=== PATIENT | female | born 1965 | race Caucasian/White ===

== ENCOUNTER 2017-03-19 15:36 | Emergency (ER) | payer BC, OTHER ==
[~2017-03-19] VITALS: Ht 165.1 cm; Wt 60.6 kg
[~2017-03-19 15:36] MED LIST: VENL150C PO
[2017-03-19 16:17] LABS: HEMATOCRIT 48.8 % (34.6-47.8); HEMOGLOBIN 16.6 g/dL (11.7-16.4)
[2017-03-19 16:17] LABS: DAU SCREEN DISCLAIMER
[2017-03-19] MEDS ORDERED: LORazepam 1MG TABLET PO ONE (16:30)
[2017-03-19 16:31] LABS: BLOOD UREA NITROGEN 5 mg/dL (7-18)
[2017-03-19 16:33] LABS: ACETAMINOPHEN < 2 mcg/mL (10-30)
[2017-03-19] MEDS ORDERED: LORazepam 1MG TABLET ONE (17:48)
[2017-03-19] MEDS ORDERED: ZIPRASIDONE 20MG CAPSULE ONE (18:39)
[2017-03-19] MEDS ORDERED: ZIPRASIDONE 20MG CAPSULE PO ONE (19:00)
[2017-03-20 02:58] VITALS: BP 140/92
== END 2017-03-20 03:26 | disposition home or self-care (01) ==
LOC: ED 19:09
DX: F10.129 Alcohol abuse with intoxication, unspecified (principal)
CPT/HCPCS: 36415; 80048; 80307; 80329; 82040; 85025; 93005; 99285; G0479; G0480